=== PATIENT | male | born 1985 | race Hispanic/Latino ===

== ENCOUNTER 2020-01-22 13:09 | Emergency (ER) | payer SELFPAY ==
[~2020-01-22] VITALS: Ht 165.1 cm; Wt 62.0 kg
[2020-01-22 17:32] LABS: HEMATOCRIT 49.5 % (39.0-50.0); HEMOGLOBIN 16.3 g/dl (14.0-18.0); IMMATURE GRANULOCYTES 0.3 % (0.0-5.0); MEAN CELL VOLUME 91.2 fL CALC (80.0-100.0); MEAN CORPUSCULAR HGB CONC 32.9 g/dL CAL (32.0-36.0); NEUT# 3.91 thou/uL (1.82-7.42); RED BLOOD COUNT 5.43 mill/uL (4.70-6.10); RED CELL DISTRI WIDTH 13.2 % (11.5-15.5)
[2020-01-22 17:53] LABS: ALBUMIN 4.8 g/dL (3.2-5.0); ALKALINE PHOSPHATASE 87 u/l (38-126); ANION GAP 15 (6-22 (CALC)); BILIRUBIN, TOTAL 0.5 mg/dL (0.0-1.4); BUN 12 mg/dL (9-20); BUN/CREATININE RATIO 16 (12-20 (CALC)); CARBON DIOXIDE 26 mmol/l (22-30); CHLORIDE 104 mmol/l (95-108); CREATININE 0.8 mg/dL (0.7-1.3); GFR > 60 ML/MIN (>=60 (CALC)); GFR FOR AFR.AMER. > 60 ML/MIN (>=60 (CALC)); LIPASE 120 u/l (23-300); SGOT/AST 41 u/l (17-59); SODIUM 141 mmol/l (137-146); TOTAL PROTEIN 8.4 g/dL (6.3-8.2)
[2020-01-22 18:27] LABS: URINE BILIRUBIN - DIPSTICK NEGATIVE (NEGATIVE); URINE BLOOD DIPSTICK NEGATIVE (NEGATIVE); URINE COLOR YELLOW; URINE GLUCOSE - DIPSTICK NEGATIVE (NEGATIVE); URINE KETONE NEGATIVE (NEGATIVE); URINE LEUK ESTERASE NEGATIVE (NEGATIVE); URINE NITRITE - DIPSTICK NEGATIVE (Negative); URINE PH 7.5 (4.5-8.0); URINE PROTEIN - DIPSTICK NEGATIVE (NEG-TRACE); URINE UROBILINOGEN - DIPSTICK 0.2 E.U./dL (0.2)
[2020-01-22] MEDS ORDERED: PROTONIX40 M2 PO (18:59)
[2020-01-22] MEDS ORDERED: MOTRIN400 MG/TAB PO (18:59)
[2020-01-22 19:10] VITALS: BP 135/84
== END 2020-01-22 19:10 | disposition home or self-care (01) | DRG 392 ==
LOC: ED 13:09
PROVIDERS: Family Medicine
DX: R10.11 Right upper quadrant pain (principal); R10.13 Epigastric pain; Z20.828 Contact with and (suspected) exposure to other viral communicable diseases

== ENCOUNTER 2022-01-06 09:44 | Emergency (ER) | payer SELFPAY ==
[~2022-01-06] VITALS: Ht 165.1 cm; Wt 65.9 kg
[2022-01-06] VITALS (10 sets, daily range): BP systolic 114–133; BP diastolic 74–94
[~2022-01-06 09:44] MED LIST: MOTRIN400 MG/TAB PO; PROTONIX40 M2 PO
[2022-01-06] MEDS ORDERED: ATENOLOL25 MG PO (10:42)
[2022-01-06 11:02] LABS: HEMATOCRIT 49.1 % (39.0-50.0); HEMOGLOBIN 16.7 g/dl (14.0-18.0); IMMATURE GRANULOCYTES 0.2 % (0.0-5.0); MEAN CELL VOLUME 92.5 fL CALC (80.0-100.0); MEAN CORPUSCULAR HGB 31.5 pG CALC (26.0-32.0); NEUT# 3.32 thou/uL (1.82-7.42); RED BLOOD COUNT 5.31 mill/uL (4.70-6.10)
[2022-01-06 11:06] LABS: ALBUMIN 4.9 g/dL (3.2-5.0); ALKALINE PHOSPHATASE 65 u/l (38-126); ANION GAP 16 (6-22 (CALC)); BUN 14 mg/dL (9-20); BUN/CREATININE RATIO 15 (12-20 (CALC)); CARBON DIOXIDE 29 mmol/l (22-30); CHLORIDE 103 mmol/l (95-108); CREATININE 0.9 mg/dL (0.7-1.3); GFR FOR AFR.AMER. > 60 ML/MIN (>=60 (CALC)); GFR OTHER RACES > 60 ML/MIN (>=60 (CALC)); LIPASE 101 u/l (23-300); POTASSIUM 3.7 mmol/l (3.5-5.1); SODIUM 143 mmol/l (137-146); TOTAL PROTEIN 7.8 g/dL (6.3-8.2)
[2022-01-06 11:07] LABS: SGOT/AST 42 u/l (17-59)
== END 2022-01-06 14:13 | disposition home or self-care (01) | DRG 948 ==
LOC: ED 09:44
PROVIDERS: Family Medicine
DX: R53.83 Other fatigue (principal); I10 Essential (primary) hypertension; R11.0 Nausea